=== PATIENT | male | born 1995 ===

== ENCOUNTER 2017-09-03 04:52 | Outpatient (CLI) | payer OTHER | END 2017-09-03 04:53 | disposition EMS.NT | LOC: EMS 04:52 | PROVIDERS: ATTEND Surgery | DX: Z04.1 Encounter for examination and observation following transport accident (principal); V89.2XXA Person injured in unspecified motor-vehicle accident, traffic, initial encounter; Y92.414 Local residential or business street as the place of occurrence of the external cause ==